=== PATIENT | male | born 1990 | race African-American/Black ===

== ENCOUNTER 2020-03-07 19:27 | Emergency (ER) | payer SELFPAY ==
[2020-03-07 19:33] VITALS: BP 118/75
[2020-03-07] MEDS ORDERED: HYDROCODONE/ACETAMINOPHEN 5-325 MG TABLET PO ONE (20:17)
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
== END 2020-03-07 20:30 | disposition home or self-care (01) ==
LOC: ER 19:27
DX: S22.32XA Fracture of one rib, left side, initial encounter for closed fracture (principal); V49.9XXA Car occupant (driver) (passenger) injured in unspecified traffic accident, initial encounter
CPT/HCPCS: 99283

== ENCOUNTER 2020-06-20 16:48 | Emergency (ER) | payer SELFPAY ==
[2020-06-20] MEDS ORDERED: PREDNISONE 20 MG TABLET PO ONE (17:58)
[2020-06-20] MEDS ORDERED: DIPHENHYDRAMINE HCL 25 MG CAPSULE PO ONE (17:58)
--- NOTE | 2020-06-20 18:01 | ER Document Report ---
ED Medical Screen (RME) - General Chief Complaint: Rash Stated Complaint: RASH Time Seen by Provider: 06/20/20 17:48 Mode of Arrival: Ambulatory Information source: Patient Notes: HPI;-29year-old male presents to the emergency room complaining of a rash to his face and neck for the past 5 days. Denies any new medications. States he has been eating different food than he usually eats. States he is been trying to use Eucerin cream without relief. Patient was also brought in by family for psychiatric evaluation per patient he states that his brother thinks he is delusional and has paperwork stating that he has a mental health history. Patient denies any mental health history but is agreeable to be evaluated by mental health at the request of family. PE: Alert and oriented x3. Normal affect. Answers questions appropriately. There is a rash behind the right ear with honey crusted lesions, there is a dark- colored rash on the posterior neck, eyes with erythema no obvious rash noted. Sclera injected. Lungs: Clear to auscultation without rales, rhonchi, wheezes. Heart: Regular rate and rhythm without murmurs, rubs, gallops. I have greeted and performed a rapid initial assessment of this patient. A comprehensive ED assessment and evaluation of the patient, analysis of test results and completion of the medical decision making process will be conducted by additional ED providers. I have specifically instructed the patient or family members with the patient to immediately return to any nursing staff should anything change in the patient's condition or with their chief complaint. TRAVEL OUTSIDE OF THE [place] IN LAST 30 DAYS: Yes - Related Data Allergies/Adverse Reactions: No Known Allergies Allergy (Verified 06/20/20 17:47) Physical Exam - Vital signs Vitals: Temp Pulse Resp BP Pulse Ox 98.3 F 98 16 140/86 H 97 06/20/20 17:06 06/20/20 17:06 06/20/20 17:06 06/20/20 17:06 06/20/20 17:06 Course - Vital Signs Vital signs: Temp Pulse Resp BP Pulse Ox 98.3 F 98 16 140/86 H 97 06/20/20 17:06 06/20/20 17:06 06/20/20 17:06 06/20/20 17:06 06/20/20 17:06
[2020-06-20 18:23] LABS: ABSOLUTE BASOPHILS # (AUTO) 0.1 10^3/uL (0.0-0.2); ABSOLUTE EOSINOPHILS # (AUTO) 0.6 10^3/uL (0.0-0.6); ABSOLUTE LYMPHOCYTES (AUTO) 3.1 10^3/uL (0.5-4.7); ABSOLUTE MONOCYTES (AUTO) 0.5 10^3/uL (0.1-1.4); ABSOLUTE NEUT (AUTO) 5.7 10^3/uL (1.7-8.2); BASOPHILS % (AUTO) 0.7 % (0-2); EOSINOPHILS % (AUTO) 5.6 % (0-6); HEMATOCRIT 46.3 % (37.9-51.0); HEMOGLOBIN 16.3 g/dL (13.5-17.0); LYMPHOCYTES % (AUTO) 31.4 % (13-45); MEAN CORPUSCULAR HEMOGLOBIN 32.8 pg (27.0-33.4); MEAN CORPUSCULAR HGB CONC 35.2 g/dL (32.0-36.0); MEAN CORPUSCULAR VOLUME 93 fl (80-97); MONOCYTES % (AUTO) 5.5 % (3-13); PLATELET COUNT 249 10^3/uL (150-450); RED BLOOD COUNT 4.98 10^6/uL (4.35-5.55); RED CELL DISTRIBUTION WIDTH 13.2 % (11.5-14.0); SEGMENTED NEUTROPHILS % (AUTO) 56.8 % (42-78); TOTAL CELLS COUNTED % (AUTO) 100 %
[2020-06-20 18:25] LABS: APPEARANCE,URINE SLIGHTLY-CLOUDY; BILIRUBIN,URINE NEGATIVE (NEGATIVE); COLOR,URINE AMBER; GLUCOSE, URINE NEGATIVE (NEGATIVE); KETONES,URINE TRACE mg/dL (NEGATIVE); LEUKOCYTE ESTERASE,URINE NEGATIVE (NEGATIVE); NITRITE,URINE NEGATIVE (NEGATIVE); PROTEIN,URINE 30 mg/dL (NEGATIVE); URINE SPECIFIC GRAVITY 1.031; UROBILINOGEN,URINE NEGATIVE mg/dL (<2.0)
[2020-06-20 18:39] LABS: URINE AMPHETAMINES SCREEN NEGATIVE; URINE BARBITURATES SCREEN NEGATIVE; URINE BENZODIAZEPINES SCREEN NEGATIVE; URINE COCAINE SCREEN NEGATIVE; URINE MARIJUANA (THC) SCREEN NEGATIVE; URINE METHADONE SCREEN NEGATIVE; URINE PHENCYCLIDINE SCREEN NEGATIVE
[2020-06-20 18:40] LABS: ALBUMIN 4.6 g/dL (3.5-5.0); ALKALINE PHOSPHATASE 73 U/L (38-126); ANION GAP 10 (5-19); ASPARTATE AMINO TRANSFERASE 35 U/L (17-59); BILIRUBIN,DIRECT 0.3 mg/dL (0.0-0.4); BILIRUBIN,TOTAL 0.4 mg/dL (0.2-1.3); BLOOD UREA NITROGEN 18 mg/dL (7-20); CALCIUM 9.7 mg/dL (8.4-10.2); CARBON DIOXIDE 27 mmol/L (22-30); CHLORIDE 102 mmol/L (98-107); GLUCOSE 101 mg/dL (75-110); POTASSIUM 3.9 mmol/L (3.6-5.0); TOTAL PROTEIN 7.3 g/dL (6.3-8.2)
[2020-06-20 18:44] LABS: ACETAMINOPHEN < 10 ug/mL (10-30); ALCOHOL < 10 mg/dL (NONE DETECTED); SALICYLATE < 1.0 mg/dL (2.0-20.0)
--- NOTE | 2020-06-20 19:02 | ER Document Report ---
ED Psych Disorder / Suicide - General Chief Complaint: Psych Problem Stated Complaint: RASH Time Seen by Provider: 06/20/20 17:48 Mode of Arrival: Ambulatory TRAVEL OUTSIDE OF THE [place] IN LAST 30 DAYS: Yes - Related Data Allergies/Adverse Reactions: No Known Allergies Allergy (Verified 06/20/20 17:47) Past Medical History - General Information source: Patient - Social History Smoking Status: Current Every Day Smoker Chew tobacco use (# tins/day): No Frequency of alcohol use: None Drug Abuse: None Family History: None Physical Exam - Vital signs Vitals: Temp Pulse Resp BP Pulse Ox 98.3 F 98 16 140/86 H 97 06/20/20 17:06 06/20/20 17:06 06/20/20 17:06 06/20/20 17:06 06/20/20 17:06 Course - Vital Signs Vital signs: Temp Pulse Resp BP Pulse Ox 98.3 F 98 16 140/86 H 97 06/20/20 17:06 06/20/20 17:06 06/20/20 17:06 06/20/20 17:06 06/20/20 17:06 - Laboratory Result Diagrams: 06/20/20 18:00 06/20/20 18:00 Laboratory results interpreted by me: 06/20/20 06/20/20 18:00 18:00 Urine Protein 30 H Urine Ketones TRACE H Urine Ascorbic Acid 40 H Salicylates < 1.0 L Acetaminophen < 10 L
--- NOTE | 2020-06-20 20:22 | EKG REPORT ---
SEVERITY:- BORDERLINE ECG - SINUS RHYTHM PROBABLE LEFT ATRIAL ABNORMALITY : Confirmed by: Marion Grimes 20-Jun-2020 20:21:57
--- NOTE | 2020-06-20 20:33 | ER Document Report ---
ED General - General Chief Complaint: Psych Problem Stated Complaint: RASH Time Seen by Provider: 06/20/20 17:48 Mode of Arrival: Ambulatory Notes: 29-year-old -[place] male coming in today with chief complaint bad flareup of his eczema on his neck and ears. While he was in the ER, he told the triage nurses about his brother thinking that he was delusional. Subsequently a psych consult was ordered for him. TRAVEL OUTSIDE OF THE [place] IN LAST 30 DAYS: Yes - Related Data Allergies/Adverse Reactions: No Known Allergies Allergy (Verified 06/20/20 17:47) Past Medical History - General Information source: Patient - Social History Smoking Status: Current Every Day Smoker Chew tobacco use (# tins/day): No Frequency of alcohol use: None Drug Abuse: None Family History: None Patient has suicidal ideation: No Patient has homicidal ideation: No Review of Systems - Review of Systems Notes: Constitutional: No fevers. No chills. EENT: No eye redness. No eye pain. No ear pain. No sore throat. Cardiovascular: No chest pain. No palpitations. Respiratory: No cough. No shortness of breath. No respiratory distress. Gastrointestinal: No abdominal pain. No nausea, vomiting, or diarrhea. Genitourinary: Atraumatic. No lesions. No pain. No discharge. Musculoskeletal: Atraumatic. No swelling. No deformities. Skin: + rash Lymphatic: No swollen lymph nodes. Neurologic: No headache. No syncope. Psychiatric: No suicidal or homicidal ideation. Physical Exam - Vital signs Vitals: Temp Pulse Resp BP Pulse Ox 98.3 F 98 16 140/86 H 97 06/20/20 17:06 06/20/20 17:06 06/20/20 17:06 06/20/20 17:06 06/20/20 17:06 - Notes Notes: General: Well-developed, well-nourished. In no acute distress. Non-toxic appearing. Cardiac: Well-perfused. Regular rate and rhythm. No murmurs, rubs, or gallops. Pulmonary: No respiratory distress. No cyanosis. Bilateral lung arreguin are clear to auscultation. Abdominal: Non-distended. Non-rigid. Bowels sounds are present in all four quadrants. No guarding or rebound. HEENT: Head is atraumatic. Conjunctivae not reddened. No tearing. PERRL. EOMI. Orbits atraumatic. No periorbital swelling or erythema. Oropharynx is without erythema, swelling, or exudates. Neck: Supple. No adenopathy. No meningismus. Dermatologic: Dry erythematous cracking rash to the neck, ears, and face Chest: Atraumatic. No chest wall tenderness to palpation. Musculoskeletal: Moves all extremities well. No range of motion deficits. no muscular or joint tenderness. No paraspinal muscle tenderness. no midline spinal tenderness or step-off. Genitourinary: Examination deferred Neurologic: No gross neurologic deficits. Psychiatric: Normal mood. Course - Re-evaluation Re-evalutation: 06/20/20 20:33 Patient definitely has eczema exacerbation. We will put him on some prednisone for 5 days, then start him on some triamcinolone. He is evaluated by the psychiatric supply chain specialist. She has no reason to hold him. She will offer him some psych resources but does not think that he needs to be emergently evaluated nor is he a danger to himself or others. - Vital Signs Vital signs: Temp Pulse Resp BP Pulse Ox 98.3 F 98 16 140/86 H 97 06/20/20 17:06 06/20/20 17:06 06/20/20 17:06 06/20/20 17:06 06/20/20 17:06 - Laboratory Result Diagrams: 06/20/20 18:00 06/20/20 18:00 Laboratory results interpreted by me: 06/20/20 06/20/20 18:00 18:00 Urine Protein 30 H Urine Ketones TRACE H Urine Ascorbic Acid 40 H Salicylates < 1.0 L Acetaminophen < 10 L Discharge - Discharge Clinical Impression: Mood disturbance Eczema Qualifiers: Eczema type: unspecified Qualified Code(s): L30.9 - Dermatitis, unspecified Condition: Good Disposition: HOME, SELF-CARE Instructions: Atopic Dermatitis (Eczema) ([facility]) Additional Instructions: Please return to the emergency department if you have any acute changes in mood. Please do not hesitate to return if you have suicidal or homicidal thoughts. Prescriptions: Triamcinolone Acetonide [Aristocort 0.1% Cream 15 gm] 1 applic TP BID #1 tub Prednisone 50 mg PO DAILY 5 Days #25 tablet
[2020-06-20 22:11] VITALS: BP 135/75
== END 2020-06-20 22:08 | disposition home or self-care (01) ==
LOC: ER 16:48
DX: L30.9 Dermatitis, unspecified (principal); R45.89 Other symptoms and signs involving emotional state; F17.200 Nicotine dependence, unspecified, uncomplicated
CPT/HCPCS: 93005; 99284; 36415; 80307 ×4; 85025; 80053; 81001; 93010; J7512